=== PATIENT | female | born 2000 | race Two or more races ===

== ENCOUNTER 2023-10-04 11:43 | Emergency (ER) | payer OTHER ==
[~2023-10-04] VITALS: Ht 165.1 cm; Wt 66.7 kg
[2023-10-04] MEDS ORDERED: CEFTRIAXONE SODIUM 1,000 MG VIAL IM STA (12:07)
[2023-10-04] MEDS ORDERED: KETOROLAC TROMETHAMINE 30 MG VIAL IM STA (12:08)
== END 2023-10-04 12:40 | disposition home or self-care (01) ==
LOC: ER 11:44
DX: J03.80 Acute tonsillitis due to other specified organisms (principal); Z91.048 Other nonmedicinal substance allergy status

== ENCOUNTER 2024-05-15 21:05 | Emergency (ER) | payer OTHER ==
[~2024-05-15] VITALS: Ht 165.1 cm; Wt 65.8 kg
[2024-05-15] MEDS ORDERED: DEXAMETHASONE SODIUM PHOSPHATE 4 MG/ML VIAL IM STA (22:07)
[2024-05-15] MEDS ORDERED: ORPHENADRINE CITRATE 30 MG/ML AMPUL IM STA (22:08)
[2024-05-15] MEDS ORDERED: KETOROLAC TROMETHAMINE 60 MG VIAL IM ONE (23:00)
== END 2024-05-15 23:36 | disposition home or self-care (01) ==
LOC: ER 21:07
DX: R51.9 Headache, unspecified (principal); Z88.9 Allergy status to unspecified drugs, medicaments and biological substances

== ENCOUNTER 2024-06-25 08:26 | Emergency (ER) | payer OTHER ==
[~2024-06-25] VITALS: Ht 167.6 cm; Wt 49.4 kg
[2024-06-25] MEDS ORDERED: ACETAMINOPHEN 500 MG GEL..CAP PO ONE (10:45)
[2024-06-25] MEDS ORDERED: DEXAMETHASONE SODIUM PHOSPHATE 4 MG/ML VIAL IM ONE (10:45)
[2024-06-25 10:52] LABS: HEMATOCRIT 37.9 % (36.0-45.00); HEMOGLOBIN 12.7 g/dL (12.0-15.00); MEAN CELL VOLUME 77.2 fL (80.00-100.00); MEAN CORPUSCULAR HGB CONC 33.6 g/dl (32.0-36.0); PLATELET COUNT 287 K/uL (150-450); RED BLOOD COUNT 4.91 M/uL (4.00-6.00); RED CELL DISTRIBUTION WIDTH 15.9 % (11.5-14.5)
[2024-06-25] MEDS ORDERED: AMOX-CLAV 875-1 EAC1 PO (11:53)
== END 2024-06-25 12:45 | disposition home or self-care (01) ==
LOC: ER 08:28
PROVIDERS: General Practice
DX: J03.80 Acute tonsillitis due to other specified organisms (principal); Z20.822 Contact with and (suspected) exposure to COVID-19
CPT/HCPCS: 36415; 96372; 99282; J1100